=== PATIENT | male | born 1980 | race Caucasian/White ===

== ENCOUNTER 2022-07-12 13:58 | Emergency (ER) | payer SELFPAY ==
[2022-07-12] VITALS (21 sets, daily range): BP systolic 118–168; BP diastolic 75–104; PULSE 72–99; RESP 16–18; TEMP 36.9; O2SAT 92–99; BMI 23.4
[2022-07-12 15:08] LABS: Basophils % 0.2 %; Eosinophils # 0.1 10^3/uL (0.0-0.8); Eosinophils % 0.7 %; Hematocrit 47.7 % (42.0-52.0); Hemoglobin 15.9 g/dL (11.7-16.6); Lymphocytes # 2.4 10^3/uL (0.8-4.8); Lymphocytes % 25.5 %; Mean Corpuscular HGB Conc 33.3 g/dL (30.0-36.0); Mean Corpuscular Hemoglobin 29.9 pg (28.0-34.0); Mean Corpuscular Volume 89.8 fl (80-94); Mean Platelet Volume 9.7 fL (7.4-10.4); Monocytes # 0.7 10^3/uL (0.2-0.9); Neutrophils # 6.28 10^3/uL (1.8-7.7); Neutrophils % 66.2 %; Nucleated Red Blood Cells % 0 %; Platelet Count 304 10^3/cmm (130-400); Red Blood Count 5.31 10^6/uL (4.1-5.3); Red Cell Distribution Width 11.6 % (12.1-15.1); White Blood Count 9.5 10^3/uL (4.0-10.0)
[2022-07-12 16:04] LABS: Alanine Aminotransferase 31 U/L (0-41); Albumin Level 4.6 g/dL (3.5-5.2); Alkaline Phosphatase 126 U/L (40-130); Aspartate Amino Transferase 21 U/L (0-40); Blood Urea Nitrogen 18 mg/dL (6-20); Calcium 9.5 mg/dL (8.5-10.5); Carbon Dioxide 29 mmol/L (22-29); Chloride 97 mmol/L (98-107); Glucose 130 mg/dL (65-115); Osmolality Calculated 286 mOsm/kg (285-295); Sodium 136 mmol/L (136-145); Total Bilirubin 0.3 mg/dL (0.15-1.2); Total Protein 7.6 g/dL (6.6-8.7)
--- NOTE | 2022-07-12 17:17 | ED_ITS ---
HPI - General Adult General: Chief complaint: General Medical Stated complaint: fever,clammy Time Seen by Provider: 07/12/22 17:15 History of Present Illness: This 41-year-old gentleman with a history of hemorrhoids presents to the ER with prolapsed hemorrhoids that he cannot push back. It is painful and makes patient have cold sweats. He is currently not on treatment for hemorrhoids. Patient has no fever, nausea, vomiting or any other pertinent systemic symptoms. Associated symptoms: Deny chest pain or headache(s) Review of Systems Const: Denies: chills, body aches or change in appetite Eyes: Denies: change in vision or eye discharge ENMT: Denies: throat pain, dental pain or nasal discharge Card: Denies: chest pain or lightheadedness : Reports: other (Painful prolapsed hemorrhoids.); Denies: dysuria Musc: Denies: neck pain or back pain Neuro: Denies: headache(s) or weakness in extremities Psych: Denies: depression Moises/Lymph: Denies: easy bruising All/Imm: Denies: urticaria, tongue swelling or facial swelling Physical Exam Const: COMMON NORMALS: no acute distress, patient oriented x3, no limitations and alert HENMT: COMMON NORMALS: normocephalic HEAD & SCALP: normocephalic Eye: COMMON NORMALS: EOMs intact bilaterally Neck/C-Spine: COMMON NORMALS: full ROM and supple Chest: COMMONS NORMALS: normal inspection of the chest Resp: COMMON NORMALS: normal respiratory effort, No retractions, No use of accessory muscles and clear to auscultation bilaterally AUSCULTATION: clear to auscultation bilaterally Cardio: COMMON NORMALS: regular rate, regular rhythm and No murmurs present (Cardio) RATE: regular rate RHYTHM: regular rhythm GI: COMMON NORMALS: Normal to inspection, nondistended, normoactive bowel sounds present and non-tender RECTAL EXAM: Yes Rectal prolapse (3 prolapsed hemorrhoids at the 2:00, 6:00 and 9:00 positions.) OTHER: Patient has a 3 prolapsed hemorrhoids. The hemorrhoid at the 9 o'clock position is thrombosed and painful. : COMMON NORMALS: Yes no CVA tenderness BLADDER/KIDNEY EXAM: Yes no CVA tenderness Back/Pelvis: COMMON NORMALS: no CVA tenderness and no thoracic nor lumbar tenderness Extremity: GENERAL: Yes normal exam except as noted Neuro: COMMON NORMALS: patient oriented x3 and no focal motor deficits SENSORIUM/ORIENTATION: Yes alert Psych: COMMON NORMALS: mental status grossly normal and cooperative Course Vital Signs: Vital signs: Vital Signs Temperature 98.4 F 07/12/22 14:13 Pulse Rate 99 07/12/22 14:13 Respiratory Rate 16 07/12/22 14:13 Blood Pressure 118/75 07/12/22 18:50 Pulse Oximetry 96 07/12/22 18:40 Oxygen Delivery Me thod 07/12/22 14:13 MDM - General Adult Medical Decision Making Medical decision making: Patient has a history of hemorrhoids and presents with prolapsed hemorrhoids. One of them is thrombosed. I&D of the thrombosed hemorrhoid was performed had significant relief afterwards. Given the extent of his hemorrhoids, he will be a candidate for surgical intervention. He was advised to follow-up with his surgeon for further care. In the meantime, Anusol HC suppositories was prescribed. He was advised on sitz bath. Reasons to return were discussed. Patient verbalized Lab Data 07/12/22 14:29 07/12/22 14:29 Laboratory Results WBC 9.5 10^3/uL (4.0-10.0) 07/12/22 14:29 RBC 5.31 10^6/uL (4.1-5.3) H 07/12/22 14:29 Hgb 15.9 g/dL (11.7-16.6) 07/12/22 14:29 Hct 47.7 % (42.0-52.0) 07/12/22 14:29 MCV 89.8 fl (80-94) 07/12/22 14:29 MCH 29.9 pg (28.0-34.0) 07/12/22 14:29 MCHC 33.3 g/dL (30.0-36.0) 07/12/22 14:29 RDW 11.6 % (12.1-15.1) L 07/12/22 14:29 Plt Count 304 10^3/cmm (130-400) 07/12/22 14:29 MPV 9.7 fL (7.4-10.4) 07/12/22 14:29 Neut % (Auto) 66.2 % 07/12/22 14:29 Lymph % (Auto) 25.5 % 07/12/22 14:29 [place] % (Auto) 7.0 % 07/12/22 14: Eos % (Auto) 0.7 % 07/12/22 14:29 Baso % (Auto) 0.2 % 07/12/22 14:29 Neut # (Auto) 6.28 10^3/uL (1.8-7.7) 07/12/22 14: Lymph # (Auto) 2.4 10^3/uL (0.8-4.8) 07/12/22 14:29 [place] # (Auto) 0.7 10^3/uL (0.2-0.9) 07/12/22 14: Eos # (Auto) 0.1 10^3/uL (0.0-0.8) 07/12/22 14: Baso # (Auto) 0.0 10^3/uL (0.0-0.1) 07/12/22 14: Nucleated RBC % (auto) 0 % 07/12/22 14: Nucleated RBCs # 0.0 /100WBC 07/12/22 14:29 Sodium 136 mmol/L (136-145) 07/12/22 14: Potassium 5.0 mmol/L (3.5-5.1) 07/12/22 14: Chloride 97 mmol/L (98-107) L 07/12/22 14: Carbon Dioxide 29 mmol/L (22-29) 07/12/22 14: Anion Gap 15.0 (5-19) 07/12/22 14:29 BUN 18 mg/dL (6-20) 07/12/22 14:29 Creatinine 0.8 mg/dL (0.7-1.2) 07/12/22 14: GFR Calculation 106.0 mL/min (90-130) 07/12/22 14: Glucose 130 mg/dL (65-115) H 07/12/22 14:29 Calculated Osmolality 286 mOsm/kg (285-295) 07/12/22 14:29 Calcium 9.5 mg/dL (8.5-10.5) 07/12/22 14:29 Total Bilirubin 0.3 mg/dL (0.15-1.2) 07/12/22 14:29 AST 21 U/L (0-40) 07/12/22 14:29 ALT 31 U/L (0-41) 07/12/22 14:29 Alkaline Phosphatase 126 U/L (40-130) 07/12/22 14:29 Total Protein 7.6 g/dL (6.6-8.7) 07/12/22 14:29 Albumin 4.6 g/dL (3.5-5.2) 07/12/22 14:29 Globulin 3.0 g/dL (1.3-4.6) 07/12/22 14:29 Discharge Plan Discharge Patient Disposition: Home Clinical Impression: External hemorrhoid, thrombosed Condition: Stable Prescriptions: New Anusol-HC 25 mg suppository 25 mg AK BID PRN (Reason: hemorrhoids) Qty: 24 0RF tramadol 50 mg tablet 50 mg PO Q6H PRN (Reason: pain) Qty: 20 0RF Discharge Orders: Discharge ED (Routine); Ordered 07/12/22 Ordered By: Nadia Ha Patient Instructions: Opioid Safety, Pain Management Activity Restrictions/Additional Instructions: Perform sitz bath for 10 to 15 minutes, 2-3 times daily. Utilize the Anusol suppositories as directed. Avoid constipation by increasing fiber in your diet including fruits and vegetables. Maintain adequate fluid intake. You need to follow-up with a general surgeon. You have significant hemorrhoids that may require surgery. Return to the ER if your condition worsens or you develop any new concerning symptoms. Coding Level of Care Code ED [employer] for Chg Fwd Exam Comprehensive Thrombosed Hemmorhoid I&D Procedure performed by: Nadia Ha Position of thrombosed hemmorhoid: nine o'clock Size of hemmorhoid: moderate Local anesthetic used: Xylocaine local, 1% plain How long ago did hemmorhoid develop: 24 hours Consent obtained: verbal consent Consent given by: patient Position of patient: left lateral yajaira-knife position Prepping solution used: alcohol preps Complications: no apparent complications Comments: Patient tolerated procedure.
== END 2022-07-12 19:27 | disposition home or self-care (01) ==
PROVIDERS: Physician Assistant; Emergency Provider Family Medicine
DX: K64.5 Perianal venous thrombosis (principal)
CPT/HCPCS: 36415; 46083; 80053; 85025; 99283